=== PATIENT | male | born 1980 | race Caucasian/White ===

== ENCOUNTER 2023-09-01 16:28 | Emergency (ER) | payer BC ==
[2023-09-01] MEDS: Sodium Chloride 0.9% 10 ML Syringe FLUSH PRN (16:42)
[2023-09-01] MEDS: Sodium Chloride 0.9% 50 ML IV SCH (16:53)
[2023-09-01] MEDS: Iopamidol 755 Mg/ML 100 ML Bottle IV ONE (16:53)
[2023-09-01 16:58] LABS: BASOPHILS ABSOLUTE AUTO 0.03 10^3/uL (0.00-0.10); BASOPHILS PERCENT AUTO 0.1 % (0.0-1.0); EOSINOPHILS ABSOLUTE AUTO 0.01 10^3/uL (0.10-0.30); HEMATOCRIT 47.8 % (40.0-52.0); HEMOGLOBIN 16.7 g/dL (13.0-17.0); IMMATURE GRAN ABSOLUTE AUTO 0.07 10^3/uL (0.00-0.50); IMMATURE GRAN PERCENT AUTO 0.3 % (0.0-5.0); LYMPHOCYTES ABSOLUTE AUTO 1.47 10^3/uL (1.00-4.00); LYMPHOCYTES PERCENT AUTO 7.2 % (20.0-40.0); MEAN CORPUSCULAR HEMOGLOBIN 29.3 pg (27.0-31.0); MEAN CORPUSCULAR HGB CONC 34.9 g/dL (32.0-36.0); MEAN PLATELET VOLUME 11.6 fL (7.4-10.4); MONOCYTES PERCENT AUTO 8.4 % (2.0-8.0); NEUTROPHILS ABSOLUTE AUTO 17.06 10^3/uL (2.50-7.00); PLATELET COUNT,PLT 175 10^3/uL (150-400); RED BLOOD CELL COUNT 5.69 10^6/uL (4.50-6.00); RED CELL DISTRIBUTION WIDTH 12.3 % (11.5-14.5); WHITE BLOOD CELL COUNT,WBC 20.34 10^3/uL (5.00-10.00)
[2023-09-01] MEDS ORDERED: Naloxone 0.4 MG/ML SDV IVPUSH PRN (17:04)
[2023-09-01] MEDS: Ondansetron 4 MG/2 ML SDV IVPUSH ONE (17:24)
[2023-09-01] MEDS: HYDROmorphone 1 MG/ML Syringe IVPUSH ONE (17:28)
[2023-09-01 17:40] LABS: APPEARANCE,URINE CLEAR (CLEAR); BILIRUBIN,URINE NEGATIVE (NEGATIVE); COLOR,URINE DARK YELLOW (YELLOW); GLUCOSE,URINE NEGATIVE (NEGATIVE); KETONES,URINE 15 mg/dL (NEGATIVE); LEUKOCYTE ESTERASE,URINE NEGATIVE (NEGATIVE); NITRITE,URINE NEGATIVE (NEGATIVE); OCCULT BLOOD,URINE TRACE-INTACT (NEGATIVE); PH,URINE 6.5 (5.0-9.0); PROTEIN,URINE NEGATIVE (NEGATIVE); UROBILINOGEN,URINE 0.2 E.U./dL (0.2-1.0)
[2023-09-01 17:45] LABS: ALANINE AMINOTRANSFERASE,ALT 29 U/L (14-63); ALBUMIN 2.81 g/dL (3.40-5.00); ALKALINE PHOSPHATASE 100 U/L (46-116); AMYLASE 25 U/L (25-125); ANION GAP 15.2 mmol/L (5-15); ASPARTATE AMNIOTRANSFERASE,AST 13 U/L (15-37); BILIRUBIN TOTAL 0.7 mg/dL (0.2-1.0); BLOOD UREA NITROGEN,BUN 9 mg/dL (7-18); CALCIUM 8.6 mg/dL (8.7-10.3); CARBON DIOXIDE,CO2 24.5 mmol/L (21.0-32.0); CHLORIDE,CL 96 mmol/L (98-107); CREATININE 0.93 mg/dL (0.51-1.17); GLUCOSE RANDOM 130 mg/dL (70-140); LIPASE 20 U/L (16-77); POTASSIUM,K 3.7 mmol/L (3.5-5.1); PROTEIN TOTAL,TP 7.5 g/dL (6.4-8.2); SODIUM,NA 132 mmol/L (136-145)
[2023-09-01 17:46] LABS: ESTIMATED GFR 104 mL/min (>=60)
[2023-09-01] MEDS: Sodium Chloride 0.9% 1,000 ML IV ONE (17:46)
[2023-09-01] MEDS: Ciprofloxacin in D5W 400 MG in Premix Bag 1 BAG IV ONE (17:46)
[2023-09-01 17:52] LABS: BACTERIA,URINE OCCASIONAL /HPF (NONE TO FEW); EPITHELIAL CELLS,URINE RARE /LPF; RBC,URINE 0-5 /HPF (0-5); WBC,URINE 0-5 /HPF (0-5)
[2023-09-01] MEDS: metroNIDAZOLE/Normal Saline 500 MG in Premix Bag 1 BAG IV ONE (18:49)
== END 2023-09-01 19:19 ==
LOC: KA.ED 16:28
DX: K57.20 Diverticulitis of large intestine with perforation and abscess without bleeding (principal); F17.200 Nicotine dependence, unspecified, uncomplicated; Z88.2 Allergy status to sulfonamides
CPT/HCPCS: 36415; 74177; 80053; 81001; 82150; 83605; 83690; 85025; 87040; 96365; 96367; 96375; 99285-25; J0744; J1170; J1836; J2405; J3490; J7030; Q9967